=== PATIENT | male | born 1990 | race African-American/Black ===

== ENCOUNTER 2017-08-25 13:10 | Emergency (ER) | payer OTHER ==
[~2017-08-25] VITALS: Ht 180.3 cm; Wt 105.0 kg
[2017-08-25 14:49] VITALS: BP 127/81
== END 2017-08-25 15:23 | disposition home or self-care (01) ==
LOC: EMS 13:12
DX: K02.9 Dental caries, unspecified (principal); F12.90 Cannabis use, unspecified, uncomplicated; F17.210 Nicotine dependence, cigarettes, uncomplicated
CPT/HCPCS: 99283